=== PATIENT | male | born 1965 | race Caucasian/White ===

== ENCOUNTER 2023-11-27 13:51 | Emergency (ER) | payer OTHER, SELFPAY ==
[2023-11-27 13:53] VITALS: BP 109/69; PULSE 63; RESP 16; TEMP 36; O2SAT 94; BMI 34.1
--- NOTE | 2023-11-27 14:03 | EX.ED.DYSGE1 ---
HPI <CARRILLO Lofton - Last Filed: 11/27/23 15:30> History of Present Illness Chief Complaint: Syncope Narrative Narrative: 58-year-old male who finished a half marathon (13.1 miles) around 12:40 PM. About a half an hour after finishing he felt lightheaded for about 30 minutes. He sat down and avoided passing out. He now feels back to normal. He had no chest pain, shortness of breath, nausea or vomiting, or abdominal pain. After the race he had water and a sip of diet Pepsi. He states he did eat breakfast prior to the run. PFSH <CARRILLO Lofton - Last Filed: 11/27/23 15:30> PFSH Allergy/AdvReac Type Severity Reaction Status Date / Time Penicillins Allergy Unknown other Verified 11/27/23 13:58 Social History Smoking Status: Never smoker ROS <CARRILLO Lofton - Last Filed: 11/27/23 15:30> ROS ED ROS Narrative Constitutional: Negative for fever, chills. CVS: Negative for palpitations, chest pain, syncope. Respiratory: Negative for shortness of breath. GI: Negative for abdominal pain, nausea, vomiting. EXAM <CARRILLO Lofton Last Filed: 11/27/23 15:30> Physical Exam Narrative Exam Narrative: CONST: Patient sitting in no acute distress. EYES: Normal inspection. NECK: Normal inspection. RESP: No respiratory distress, CTAB. CVS: Regular rate and rhythm, no murmur, no gallop. SKIN: Color normal, no rash, warm, dry, intact. EXTREMITIES: Normal appearance, no pedal edema. NEURO: Oriented x4. PSYCH: Normal affect. Const Vital Signs: 11/27/23 13:53 11/27/23 15:04 Temperature 96.8 F L Temperature Source Temporal Pulse Rate 63 Pulse Rate [Lying] 72 Pulse Rate [Sitting (for 1 minute prior to obtaining)] 70 Pulse Rate [Standing (for 1 minute prior to obtaining)] 74 Respiratory Rate 16 Blood Pressure 109/69 Blood Pressure [Lying] 121/71 H Blood Pressure [Sitting (for 1 minute prior to obtaining)] 136/72 H Blood Pressure [Standing (for 1 minute prior to obtaining)] 128/76 H Blood Pressure Mean 82 Blood Pressure Mean [Lying] 87 Blood Pressure Mean [Sitting (for 1 minute prior to obtaining)] 93 Blood Pressure Mean [Standing (for 1 minute prior to obtaining)] 93 Pulse Ox 94 Oxygen Delivery Method Room Air <Dr. Shay Foster, - Last Filed: 11/27/23 16:47> Physical Exam Const Vital Signs: 11/27/23 13:53 11/27/23 15:04 Temperature 96.8 F L Temperature Source Temporal Pulse Rate 63 Pulse Rate [Lying] 72 Pulse Rate [Sitting (for 1 minute prior to obtaining)] 70 Pulse Rate [Standing (for 1 minute prior to obtaining)] 74 Respiratory Rate 16 Blood Pressure 109/69 Blood Pressure [Lying] 121/71 H Blood Pressure [Sitting (for 1 minute prior to obtaining)] 136/72 H Blood Pressure [Standing (for 1 minute prior to obtaining)] 128/76 H Blood Pressure Mean 82 Blood Pressure Mean [Lying] 87 Blood Pressure Mean [Sitting (for 1 minute prior to obtaining)] 93 Blood Pressure Mean [Standing (for 1 minute prior to obtaining)] 93 Pulse Ox 94 Oxygen Delivery Method Room Air MDM <CARRILLO Lofton - Last Filed: 11/27/23 15:30> [facility] Narrative Medical decision making narrative: History gathered from: Patient and spouse Patient finished a half marathon and then felt lightheaded. Upon arrival symptoms have resolved. He appears well and nontoxic and is stable vital signs. Exam is benign. Initially I ordered IV fluids and labs but the first attempt at placing peripheral IV was unsuccessful and he declined further attempts. I discussed without screening labs we cannot rule out conditions such as rhabdomyolysis or renal failure he expressed understanding. Orthostatic vital signs are negative. Patient was discharged in stable condition. <Dr. Shay Foster, - Last Filed: 11/27/23 16:47> [facility] Narrative Medical decision making narrative: History gathered from: Patient and spouse Patient finished a half marathon and then felt lightheaded. Upon arrival symptoms have resolved. He appears well and nontoxic and is stable vital signs. Exam is benign. Initially I ordered IV fluids and labs but the first attempt at placing peripheral IV was unsuccessful and he declined further attempts. I discussed without screening labs we cannot rule out conditions such as rhabdomyolysis or renal failure he expressed understanding. Orthostatic vital signs are negative. Patient was discharged in stable condition. This patient was seen with a PA/MANDOLIN REPAIR PERSON Individually assessed they patient including history and physical. I have reviewed everything on the chart that is available and agree with the documentation provided by the PA/MANDOLIN REPAIR PERSON including discussion about the assessment, treatment plan, discussion, and return precautions. Patient seen and evaluated for near syncope after running a half marathon today. He states he drank about 1 bottle of water during the run. He admits to running about 100 miles a year. Patient currently not lightheaded but states he became lightheaded about 30 minutes after running. He has been able to tolerate fluids. Initially we tried obtain lab work and the patient did not wish to have an IV placed and refused. We did obtain orthostatic vital signs which were normal. We did discuss that the patient could be in renal failure, have electrolyte abnormalities, arrhythmias, rhabdomyolysis and patient still wants to leave without any workup. He does have the potassium make this decision. Return precautions were discussed. Impression: 1. Near syncope Discharge Plan Triage Chief Complaint: Syncope ED Midlevel Provider: Becca Colindres ED Provider: Shay Foster Dx/Rx/DC Orders Clinical Impression: Lightheaded Instructions: Dizziness Fainting Causes Primary Care Provider: LUCA REYNA Referrals: LUCA REYNA [Other] Activity Restrictions/Additional Instructions: hydrate and follow-up with your doctor. Return if symptoms worsen Disposition Disposition: Home, Self Care Discharge Date/Time: 11/27/23 15:35
--- OUTSIDE RECORDS SUMMARY | 2023-11-27 14:37 | XMS RPT_ITS | CCD ---
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 Name Role Phone KAL FLOWERS MD Primary Care Physician KAL FLOWERS MD Primary Care Unavailable PORFIRIO LIM, RANDAL Kong Attending Unavailable KAL FLOWERS MD Primary Care Unavailable AMIRAH PRESLEY Attending Unavailwhitney rodriguez Allergies Allergy Classification Reported Allergen(s) Allergy Type Date of Onset Reaction(s) Facility (1 source) Penicillin; Translations: [penicillins] Drug Allergy Unknown [facility] Medications Current Medications Medication Drug Class(es) Dates Sig (Normalized) Sig (Original) Multiple Vitamins oral tablet (1 source) Start: 06-19-2016 take 1 tablet by mouth once daily Multiple Vitamins oral tablet Dose = 1 tab(s), Oral, Daily, # 30 tab(s), 0 Refill(s) Start Date: 06/19/16 Status: Ordered Problems Problem Classification Problem Date Documented Da te Episodic/Chronic Osteoarthritis (1 source) Arthritis 06-19-2016 Chronic Other non-traumatic joint disorders (1 source) Hip pain 06-19-2016 Episodic Syncope (2 sources) Syncope and collapse; Translations: [Syncope and collapse] Onset: 03-06-2022 Episodic Unclassified (1 source) Eye glasses, device (physical object) 06-19-2016 Results Test Name Value Interpretation Reference Range Facil ity Vital Signs Date Time Vital Sign Value Performing Clinician Gera templeton 03-06-2022 21:00-0400 Body temperature 97.88 [degF] RANDAL MONROY MD [facility] 06-24-2022 21:00-0400 Diastolic blood pressure 58 mm[Hg] RANDAL MONROY MD [facility] 03-06-2022 21:00-0400 Heart rate 57 /min RANDAL MONROY MD [facility] 03-06-2022 21:00-0400 Respiratory rate 18 /min RANDAL MONROY MD [facility] 03-06-2022 21:00-0400 Systolic blood pressure 112 mm[Hg] RANDAL MONROY MD [facility] Encounters Encounter Date Encounter Type Care Provider Facility Start: 08-27-2022 End: 08-27-2022 ambulatory KAL FLOWERS MD Facility:A Start: 03-06-2022 End: 03-07-2022 Emergency department patient visit KAL FLOWERS MD Facility:A Start: 03-06-2022 End: 03-06-2022 Emergency department patient visit RANDAL MONROY MD [facility] Procedures Date Procedure Procedure Detail Performing Clinician Start: 09-13-2005 Laser assisted in [place] keratomileusis RANDAL MONROY MD Start: 09-13-1971 Tonsillectomy RANDAL MALIN MD Payers Date Payer Category Payer Unknown [id number] 1965 Unknown [id number] 1965 Unknown [id number] Social History Date Type Detail Facility Tobacco smoking status Never smo ked tobacco (finding) [facility] Sex Assigned At Sex [facility] Evaluation + Plan note 03-06-2022 Note Date & Type Note Facility 03-06-2022 Evaluation + Plan note Diagnostic Tests PendingComplete Metabolic Panel 03/06/22Complete Blood Count 03/06/22Troponin I High Sensitivity 03/06/22 [facility] Hospital course Narrative Note Date & Type Note Facility Hospital course Narrative No data available for this section [facility] Hospital Discharge instructions Note Date & Type Note Facility Hospital Discharge instructions No data available for this section [facility] Progress note Note Date & Type Note Facility Progress note No data available for this section [facility] Summary Purpose Family History No Family History Records Found Advance Directives No Advanced Directives Records Found Additional Source Comments Care Team (unrecognized sect ion and content) Personnel Name: KAL FLOWERS MD Address: Address: [address] [place] [address] (unrecognized sect ion and content) No Status Records Found INFORMATION SOURCE (unrecogn ized section and content) FOR RECORDS PERTAINING TO PATIENTS WHO ARE OR HAVE BEEN ENROLLED IN A CHEMICAL DEPENDENCY/SUBSTANCEABUSE PROGRAM, SOME INFORMATION MAY BE OMITTED. This clinical summary was aggregated from multiple sources. Caution should be exercised in using it in the provision of clinical care. This summary normalizes information from multiple sources, and as a consequence, information in this document may materially change the coding, format and clinical context of patient data. In addition, data may be omitted in some cases. CLINICAL DECISIONS SHOULD BE BASED ON THE PRIMARY CLINICAL RECORDS. [employer] [facility] [facility]. provides no warranty or guarantee of the accuracy or completeness of information in this document.
[2023-11-27 15:04] VITALS: BP 121/71; BP 128/76; BP 136/72; PULSE 70; PULSE 72; PULSE 74
== END 2023-11-27 15:35 | disposition home or self-care (01) ==
PROVIDERS: Emergency Provider Student in an Organized Health Care Education/Training Program; Visit Provider Student in an Organized Health Care Education/Training Program
DX: R55 Syncope and collapse (principal)
CPT/HCPCS: 99283; A4216